=== PATIENT | female | born 1985 | race Caucasian/White ===

== ENCOUNTER 2018-05-26 21:39 | Inpatient (IN) | payer OTHER ==
[2018-05-26] MEDS ORDERED: BRETHINE SUB-Q PRN (22:26)
[2018-05-26] MEDS ORDERED: XYLOCAINE 2% INFILTRATI ONE (22:26)
[2018-05-26] MEDS ORDERED: POLYCILLIN/NS 2 GM/100 ML 2 GM/100 ML BAG IV ONE (22:26)
--- NOTE | 2018-05-26 22:45 | History and Physical Report ---
History of Present Illness Date of examination: 05/26/18 Date of admission: 05/26/2018 Chief complaint: Contractions all day, becoming stronger for the past 2-3 hours. History of present illness: 33 year old female presents to L&D in active labor. Patient denies leaking of fluid or vaginal bleeding. Patient reports active movement. Patient states she has received care at [facility] but no records are available. Patient denies complications with her . Patient state she has had 2 previous vaginal births. Patient denies health problems. NKDA. Current medications: Vitamins. Past History Past Medical History: no pertinent history Past Surgical History: no surgical history [facility] History: denies: chlamydia, gonorrhea, hepatitis B, hepatitis C, herpes, syphilis Family/Genetic History: none Social history: , full code. denies: smoking, alcohol abuse, prescription drug abuse, IV drug use - Obstetrical History Expected Date of Delivery: 05/29/18 Actual Gestation: 39 Week(s) 5 Day(s) : 3 Para: 2 Hx # Term Pregnancies: 3 Number of Pregnancies: 0 Spontaneous Abortions: 0 Induced : 0 Number of Living Children: 2 Medications and Allergies Allergies Allergy/AdvReac Type Severity Reaction Status Date / Time No Known Allergies Allergy Verified 02/22/15 21:32 Home Medications Medication Instructions Recorded Confirmed Last Taken Type No Known Home Medications [No 02/22/15 05/26/18 Unknown History Reported Home Medications] Active Meds: Active Medications Ephedrine Sulfate (Ephedrine Sulfate) 10 mg IV Q2M PRN PRN Reason: Hypotension Ampicillin Sodium (Polycillin/Ns 2 Gm/100 Ml) 2 gm in 100 mls @ 100 mls/hr IV ONCE ONE; Protocol Stop: 05/26/18 23:25 Lactated Ringer's (Lactated Ringers) 1,000 mls @ 125 mls/hr IV DIRECT SHARMAINE Oxytocin/Sodium Chloride (Pitocin/Ns 20 Unit/1000ml Drip) 20 units in 1,000 mls @ 125 mls/hr IV DIRECT SHARMAINE Ampicillin Sodium (Ampicillin/Ns 1 Gm/50 Ml) 1 gm in 50 mls @ 100 mls/hr IV Q4HR SHARMAINE; Protocol Lidocaine (Xylocaine 2%) 20 ml INFILTRATI ONCE ONE Stop: 05/26/18 22:27 Terbutaline Sulfate (Brethine) 0.25 mg SUB-Q ONCE PRN PRN Reason: Hyperstimulation/Hypertonicity Review of Systems All systems: negative (labor/contractions) - Physical Exam Cardiovascular: Regular rate, Normal S1, Normal S2 Lungs: Positive: Clear to auscultation Abdomen: Positive: normal appearance, soft. Negative: distention, tenderness, guarding Genitourinary (Female): Positive: normal external genitalia, normal perenium. Negative: perineal/vulvar lesions Vagina: Positive: normal moisture Uterus: Positive: enlarged. Negative: tender Anus/Rectum: Positive: normal perianal skin Extremities: Negative: tenderness, edema - Obstetrical FHR: category 1 Uterine Contraction Monitor Mode: External Cervical Dilatation: 65 Cervical Effacement Percentage: 70 station: -2 Results Result Diagrams: 05/26/18 22:50 All other labs normal. Assessment and Plan A: at 39 weeks, 5 days gestation. Active labor. GBS unknown. P: Admit. GBS prophylaxis. Anticipte vaginal delivery.
[2018-05-26] MEDS ORDERED: PITOCin/NS 20 UNIT/1000ML DRIP 20 UNITS/1,000 ML BAG IV SCH (23:00)
[2018-05-26] MEDS ORDERED: LACTATED RINGERS 1,000 ML IV SCH (23:00)
[2018-05-26 23:09] LABS: Hematocrit 36.1 % (30.3-42.9); Hemoglobin 12.9 gm/dl (10.1-14.3); Mean Corpuscular HGB Conc 36 % (30-34); Mean Corpuscular Hemoglobin 33 pg (28-32); Mean Corpuscular Volume 94 fl (79-97); Platelet Count 226 K/mm3 (140-440); Red Blood Count 3.85 M/mm3 (3.65-5.03); Red Cell Distribution Width 14.1 % (13.2-15.2)
[2018-05-26] MEDS ORDERED: SUBLIMAZE IV ONE (23:51)
[2018-05-27] MEDS ORDERED: AMPICILLIN/NS 1 GM/50 ML 1 GM/50 ML BAG IV SCH (02:00)
[2018-05-27] MEDS ORDERED: LANSINOH TP PRN (05:22)
[2018-05-27] MEDS ORDERED: TYLENOL PO PRN (05:22)
[2018-05-27] MEDS ORDERED: BENADRYL PO PRN (05:22)
[2018-05-27] MEDS ORDERED: TUCKS PAD TP PRN (05:22)
[2018-05-27] MEDS ORDERED: PHENERGAN PR PRN (05:22)
[2018-05-27] MEDS ORDERED: PHENERGAN PO PRN (05:22)
[2018-05-27] MEDS ORDERED: DULCOLAX PR PRN (05:22)
[2018-05-27] MEDS ORDERED: ZOFRAN IV PRN (05:22)
[2018-05-27] MEDS ORDERED: MILK OF MAGNESIA PO PRN (05:22)
[2018-05-27] MEDS ORDERED: NORCO 5/325 PO PRN (05:27)
--- NOTE | 2018-05-27 05:44 | Procedure Note ---
OB Delivery Note - Delivery Date of Delivery: 05/27/18 Surgeon: SELMA POLLACK Estimated blood loss: other (250 cc) - Vaginal Intrapartum events: shoulder dystocia (resolved with Amy and delivery of posterior arm) Delivery augmentation: rupture of membranes Delivery monitor: external FHT, external uterine Route of delivery: Delivery placenta: spontaneous Delivery cord: 3 umbilical vessels Delivery laceration: 1st degree
[2018-05-27] MEDS ORDERED: SODIUM CHLORIDE FLUSH SYRINGE 10 ML IV NR (06:00)
[2018-05-27] MEDS: MOTRIN PO SCH ×3 (06:23→18:22)
[2018-05-27] MEDS ORDERED: DERMOPLAST TP PRN (11:15)
[2018-05-27 18:19] LABS: Hemoglobin 12.6 gm/dl (10.1-14.3)
[2018-05-28] MEDS: MOTRIN PO SCH ×2 (06:00)
--- NOTE | 2018-05-28 09:42 | Progress Note ---
Assessment and Plan - Patient Problems (1) Status post normal vaginal delivery Current Visit: Yes Status: Acute Plan to address problem: PPD 1 - stable Discharge to home today Follow-up at [facility] in 6 weeks for exam Subjective - Subjective Date of service: 05/28/18 Principal diagnosis: s/p , PPD #1 Patient reports: appetite normal, voiding normally, pain well controlled, ambulating normally, no dizzy ambulation : doing well, bottle feeding Objective - Vital Signs Latest vital signs: Vital Signs Temp Pulse Resp BP 05/28/18 06:00 18 05/28/18 00:30 98.7 F 64 18 102/74 05/28/18 00:00 18 05/27/18 19:30 98.7 F 77 18 101/72 05/27/18 17:45 98.7 F 84 18 99/55 Intake and Output 05/27/18 05/28/18 05/28/18 23:59 07:59 15:59 Intake Total 300 600 Balance 300 600 Intake: Oral 240 Intake, Free Water 300 360 Other: Total, Intake Amount 240 # Voids Void 1 - Exam Abdomen: Present: normal appearance, soft Vulva: both: normal Uterus: Present: normal, firm, fundal height below umbilicus Extremities: Present: normal
--- NOTE | 2018-05-28 09:45 | Discharge Summary ---
Providers - Providers Date of Admission: 05/26/18 22:39 Date of discharge: 05/28/18 Attending physician: MILDRED CAICEDO MD Primary care physician: MILDRED CAICEDO MD Hospitalization Reason for admission: active labor, IUP at term Delivery: Episiotomy: none Laceration: 1st degree Other procedures: none complications: none Discharge diagnosis: IUP at term delivered [place] baby: female Hospital course: Uncomplicated Condition at discharge: Stable Disposition: OK-01 TO HOME OR SELFCARE - Discharge Diagnoses (1) Status post normal vaginal delivery Status: Acute Plan - Provider Discharge Summary Activity: routine, no sex for 6 weeks, no heavy lifting 4 weeks, no strenuous exercise Diet: routine Instructions: routine Additional instructions: [] Smoking cessation referral if applicable(refer to patient education folder for contact #) [] Refer to [facility] Booklet Call your doctor immediately for: * Fever > 100.5 * Heavy vaginal bleeding ( >1 pad per hour) * Severe persistent headache * Shortness of breath * Reddened, hot, painful area to leg or breast * Drainage or odor from incision. * Keep incision clean and dry at all times and follow doctor's instructions regarding bathing/showering - Follow up plan Follow up: MILDRED CAICEDO MD [Primary Care Provider] - 6 Weeks (Follow-up at [facility] in 6 weeks for exam) Forms: [facility] Discharge Summary
[2018-05-28 15:14] VITALS: BP 106/71
== END 2018-05-28 13:15 | disposition home or self-care (01) | DRG 775 ==
LOC: TRG 21:39 → LD 22:39 → OB 05-27 05:14
PROVIDERS: ADMIT Obstetrics & Gynecology; ATTEND Obstetrics & Gynecology
PROC: 10E0XZZ Delivery of Products of Conception, External Approach (ICD-10-PCS; principal; 2018-05-27)
PROC: 0HQ9XZZ Repair Perineum Skin, External Approach (ICD-10-PCS; 2018-05-27)
DX: O66.0 Obstructed labor due to shoulder dystocia (principal); O70.0 First degree perineal laceration during delivery; Z3A.39 39 weeks gestation of pregnancy; Z37.0 Single live birth
CPT/HCPCS: 36415; 83036; 85014; 85018; 85027; 86592; 86706; 86762; 86850; 86900; 86901; 87806; J0290; J2590; J3010; J7120